=== PATIENT | male | born 1990 | race Caucasian/White ===

== ENCOUNTER 2016-06-09 17:05 | Emergency (ER) | payer OTHER ==
[~2016-06-09] VITALS: Ht 188 cm; Wt 88.5 kg
[2016-06-09] MEDS ORDERED: HYDROCODONE/APAP 5-325MG TABLET PO ONE (17:45)
[2016-06-09] MEDS ORDERED: HYDROCODONE/APAP 5-325MG TABLET ONE (17:59)
--- NOTE | 2016-06-09 18:33 | NUR ---
Patient discharged to home in stable conditon. Written and verbal after care instructions given. Patient verbalizes understanding of instructions.
== END 2016-06-09 18:33 | disposition home or self-care (01) ==
LOC: ER 17:09
DX: S61.214A Laceration without foreign body of right ring finger without damage to nail, initial encounter (principal); S80.212A Abrasion, left knee, initial encounter; W22.8XXA Striking against or struck by other objects, initial encounter; Y93.89 Activity, other specified; Y99.8 Other external cause status; Y92.89 Other specified places as the place of occurrence of the external cause
CPT/HCPCS: 29130; 73140; 99284; A4217; A4663